=== PATIENT | female | born 1995 | race Caucasian/White ===

== ENCOUNTER 2024-01-18 10:24 | Outpatient (OUT) | payer OTHER, SELFPAY ==
[2024-01-18 10:57] LABS: Basophils Percent Auto 0.4 % (0.2-2.0); Eosinophils Absolute Auto 0.3 10^3/uL (0.0-0.7); Eosinophils Percent Auto 2.9 % (0.9-7.0); Hematocrit 36.4 % (36.0-48.0); Hemoglobin 11.7 g/dL (12.0-16.0); Immature Granulocytes Abs Auto 0.06 10^3/uL (0.00-0.03); Immature Granulocytes Pct Auto 0.7 % (0.0-0.5); Lymphocytes Absolute Auto 1.8 10^3/uL (1.2-3.8); Lymphocytes Percent Auto 20.4 % (20.5-60.0); Mean Corpuscular HGB Conc 32.1 g/dL (29.9-35.2); Mean Corpuscular Hemoglobin 28.7 pg (26.7-34.0); Mean Corpuscular Volume 89.2 fL (81.0-99.0); Mean Platelet Volume 10.2 fL (9.5-13.5); Monocytes Absolute Auto 0.8 10^3/uL (0.3-0.8); Monocytes Percent Auto 8.9 % (1.7-12.0); Neutrophils Percent Auto 66.7 % (43.0-75.0); Platelet Count 293 10^3/uL (150-450); Red Blood Count 4.08 10^6/uL (4.20-5.40); Red Cell Distribution Width 12.6 % (11.0-15.0)
[2024-01-18 14:41] LABS: HCG Quantitative <1 mIU/mL; Thyroid Stimulating Hormone 2.216 uIU/mL (0.358-3.740)
[2024-01-18 16:24] LABS: Estimated Average Glucose 103 mg/dL; Glycohemoglobin A1C 5.2 % (4.5-6.2)
[2024-01-18 16:35] LABS: Free T4 0.85 ng/dL (0.76-1.46)
[2024-01-19 07:07] LABS: FSH 5.3 mIU/mL (.); Luteinizing Hormone(LH) 15.6 mIU/mL (.); Progesterone 6.8 ng/mL (.)
== END 2024-01-18 10:25 | disposition home or self-care (01) ==
PROVIDERS: Visit Provider Obstetrics & Gynecology
DX: N80.9 Endometriosis, unspecified (principal); E28.2 Polycystic ovarian syndrome; N97.0 Female infertility associated with anovulation
CPT/HCPCS: 36415; 82397; 82626; 82627; 83001; 83002; 83036; 84144; 84439; 84443; 84702; 85025